=== PATIENT | male | born 1995 | race Two or more races ===

== ENCOUNTER 2023-12-29 21:02 | Inpatient (IN) | payer MEDICAID, OTHER ==
[~2023-12-29] VITALS: Ht 177.8 cm; Wt 84.4 kg
[2023-12-29 21:39] LABS: BASOPHILS # (AUTO) 0.1 K/UL (0.0-0.2); BASOPHILS % (AUTO) 0.4 % (0.0-2.0); EOSINOPHILS # (AUTO) 0.1 K/uL (0.0-0.7); EOSINOPHILS % (AUTO) 0.5 % (0.0-7.0); HEMATOCRIT 46.1 % (36.7-47.1); HEMOGLOBIN 14.9 g/dL (12.5-16.3); LYMPHOCYTES % (AUTO) 15.6 % (20.5-51.5); MEAN CORPUSCULAR HEMOGLOBIN 28.9 uug (23.8-33.4); MEAN CORPUSCULAR HGB CONC 32 g/dL (32.5-36.3); MEAN CORPUSCULAR VOLUME 89.7 fL (73.0-96.2); MONOCYTES # (AUTO) 0.8 K/uL (0.1-1.30); NEUTROPHILS # (AUTO) 9.9 K/uL (1.8-8.9); NEUTROPHILS % (AUTO) 77.5 % (38.5-71.5); PLATELET COUNT (AUTO) 299 K/uL (152-348); RED BLOOD CELL COUNT(AUTO) 5.14 MIL/uL (4.06-5.63); WHITE BLOOD COUNT (AUTO) 12.7 K/uL (3.6-10.2)
[2023-12-29 21:44] LABS: DIFFERENTIAL COMMENT 1
[2023-12-29 21:48] LABS: AMMONIA 18 umol/L (11-32); CALCIUM 8.4 mg/dL (8.5-10.1); CARBON DIOXIDE 25 mmol/L (21-32); CHLORIDE 105 mmol/L (98-107); GLUCOSE 104 mg/dL (74-106); POTASSIUM 3.4 mmol/L (3.5-5.1); SODIUM SERUM 143 mmol/L (136-145); UREA NITROGEN, BLOOD 11 mg/dL (7-18)
[2023-12-29 21:51] LABS: ETHANOL 42 MG/DL (0-10)
[2023-12-29 21:57] LABS: ACETAMINOPHEN < 2.0 ug/mL (10-30); ALANINE AMINOTRANSFERASE 29 U/L (16-63); ALBUMIN 3.8 g/dL (3.4-5.0); ALKALINE PHOSPHATASE 109 U/L (50-136); ASPARTATE AMINOTRANSFERASE 19 U/L (15-37); BILIRUBIN,DIRECT 0.1 mg/dL (0.0-0.2); BILIRUBIN,TOTAL 0.9 mg/dL (0.2-1.0); TOTAL PROTEIN, SERUM 7.4 g/dL (6.4-8.2)
[2023-12-29 22:07] LABS: LACTIC ACID 2.2 mmol/L (0.4-2.0)
[2023-12-29] MEDS ORDERED: LORAZEPAM 2 MG/1 ML VIAL ONE (22:12)
[2023-12-29] MEDS: LORAZEPAM 2 MG/1 ML VIAL IV ONE (22:22)
[2023-12-29 23:26] LABS: *BILIRUBIN,URIN NEGATIVE (NEGATIVE); *BLOOD, URINE NEGATIVE (NEGATIVE); *CLARITY,URINE CLEAR (CLEAR); *COLOR,URINE LIGHT YELLOW (YELLOW); *KETONES,URINE NEGATIVE (NEGATIVE); *PROTEIN,URINE NEGATIVE (NEGATIVE); *UROBILINOGEN,URINE 0.2 E.U./dl (NORMAL); LEUKOCYTE ESTERASE ,URINE NEGATIVE (NEGATIVE); NITRITE, URINE NEGATIVE (NEGATIVE); PH,URINE 5.5 (5.0-8.0); UGLUCOSE NEGATIVE (NEGATIVE)
[2023-12-29 23:35] LABS: *AMPHETAMINE, URINE NEGATIVE (NEGATIVE); *BARBITURATE, URINE NEGATIVE (NEGATIVE); *BENZODIAZEPINE, URINE NEGATIVE (NEGATIVE); *CANNABINOID, URINE NEGATIVE (NEGATIVE); *COCCAINE, URINE NEGATIVE (NEGATIVE); *OPIATE, URINE NEGATIVE (NEGATIVE); *PHENCYCLIDINE SCREEN,URINE NEGATIVE (NEGATIVE)
[2023-12-29 23:42] LABS: FENTANYL, URINE NEGATIVE (NEGATIVE)
[2023-12-30] MEDS ORDERED: CLONIDINE HCL 0.2 MG TABLET ONE (02:13)
[2023-12-30] MEDS: CLONIDINE HCL 0.2 MG TABLET PO ONE (02:16)
[2023-12-30] MEDS ORDERED: ACETAMINOPHEN 325 MG TABLET PO PRN ×2 (03:45→15:15)
[2023-12-30] MEDS ORDERED: MAGNESIUM HYDROXIDE 30 ML LIQUID UDC PO PRN ×2 (03:45→15:15)
[2023-12-30] MEDS ORDERED: REMEDY ESSENTIAL ZINC PASTE 113 GM TP PRN ×2 (03:45→15:15)
[2023-12-30] MEDS ORDERED: ONDANSETRON 4 MG/2 ML VIAL IV PRN ×2 (03:45→15:15)
[2023-12-30] MEDS ORDERED: IV NS 1000 ML 1,000 ML IV PRN ×2 (03:45→15:15)
[2023-12-30] MEDS ORDERED: PANTOPRAZOLE SODIUM 40 MG VIAL IV SCH (09:00)
[2023-12-30 16:17] VITALS: BP 135/77; TEMP 98.5; O2SAT 95
[2023-12-30] MEDS ORDERED: HALOPERIDOL LACTATE 5 MG/1 ML VIAL IM PRN (17:00)
[2023-12-30] MEDS ORDERED: IV D5W-0.45% NS +20 KCL 1,000 ML IV ONE (20:16)
[2023-12-30] MEDS: POTASSIUM CHLORIDE 20 MEQ in IV D5 1/2 NS 1000 ML 1,000 ML IV PRN (21:48)
[2023-12-30 23:48] VITALS: BP 112/72; TEMP 97.9; O2SAT 96
[2023-12-31 06:22] VITALS: BP 113/62; TEMP 97.4; O2SAT 100
[2023-12-31] MEDS: PANTOPRAZOLE SODIUM 40 MG VIAL IV SCH (08:53)
[2023-12-31] MEDS ORDERED: LORAZEPAM 1 MG TABLET PO PRN (09:30)
[2023-12-31] MEDS: FOLIC ACID 1 MG TABLET PO SCH (11:48)
[2023-12-31] MEDS: THIAMINE HCL 100 MG TABLET PO SCH (11:49)
[2023-12-31] MEDS: MULTIVITAMINS,THERAPEUTIC TABLET PO SCH (11:49)
[2023-12-31 12:38] VITALS: BP 107/60; TEMP 97.4; O2SAT 100
[2023-12-31] MEDS ORDERED: ATOM80CA3 PO (14:33)
[2023-12-31] MEDS ORDERED: MULT-225 PO (14:33)
[2023-12-31] MEDS ORDERED: THIA100T13 PO (15:41)
[2023-12-31] MEDS ORDERED: FAMO20TA8 PO (15:41)
[2023-12-31] MEDS ORDERED: FOLI1TAB94 PO (15:41)
[2023-12-31 16:00] VITALS: BP 115/76; TEMP 98.4; O2SAT 98
[2024-01-01] MEDS ORDERED: FAMOTIDINE 20 MG TABLET PO SCH (09:00)
[2024-01-01] MEDS ORDERED: Medication Not On Formulary EA (Multivitamins (Multiple Vitamin) 1 EACH) PO SCH (09:00)
[2024-01-01] MEDS ORDERED: ATOMOXETINE HCL 80 MG PO SCH (09:00)
== END 2023-12-31 17:00 | disposition home or self-care (01) | DRG 812 ==
LOC: ER 21:05 → TELE3 12-30 15:00 → ER 12-30 15:09 → MEDSURG3 12-30 15:50
PROVIDERS: ATTEND Internal Medicine
DX: T39.394A Poisoning by other nonsteroidal anti-inflammatory drugs [NSAID], undetermined, initial encounter (principal); G92.8 Other toxic encephalopathy; E87.20 Acidosis, unspecified; F19.121 Other psychoactive substance abuse with intoxication delirium; F31.9 Bipolar disorder, unspecified; D72.829 Elevated white blood cell count, unspecified; F10.129 Alcohol abuse with intoxication, unspecified; T51.0X4A Toxic effect of ethanol, undetermined, initial encounter; T48.4X4A Poisoning by expectorants, undetermined, initial encounter; T48.3X4A Poisoning by antitussives, undetermined, initial encounter; Y90.2 Blood alcohol level of 40-59 mg/100 ml; Y92.032 Bedroom in apartment as the place of occurrence of the external cause; E87.6 Hypokalemia; E66.9 Obesity, unspecified; Z68.26 Body mass index [BMI] 26.0-26.9, adult; Z79.899 Other long term (current) drug therapy; R00.0 Tachycardia, unspecified; F90.9 Attention-deficit hyperactivity disorder, unspecified type; F19.10 Other psychoactive substance abuse, uncomplicated
CPT/HCPCS: 36415; 70450; 71045; 83605; 84484; 85025; 85730; 93005; C1758; G0378; G0480; J2060; J2470; J3480; J7040

== ENCOUNTER 2024-01-29 23:17 | Inpatient (IN) | payer MEDICAID ==
[~2024-01-29] VITALS: Ht 175.3 cm; Wt 84.4 kg
[2024-01-29] MEDS: IV NS 1000 ML 1,000 ML IV ONE (00:23)
[~2024-01-29 23:17] MED LIST: ATOM80CA3 PO; FAMO20TA8 PO; FOLI1TAB94 PO; MULT-225 PO; THIA100T13 PO
[2024-01-29] MEDS ORDERED: HALO100A2 IM (23:51)
[2024-01-29] MEDS ORDERED: LITH300T2 PO (23:51)
[2024-01-30 00:21] LABS: BASOPHILS % (AUTO) 0.2 % (0.0-2.0); EOSINOPHILS % (AUTO) 0.2 % (0.0-7.0); HEMATOCRIT 46.7 % (36.7-47.1); HEMOGLOBIN 15.2 g/dL (12.5-16.3); LYMPHOCYTES # (AUTO) 0.9 K/uL (0.8-4.8); LYMPHOCYTES % (AUTO) 6.2 % (20.5-51.5); MEAN CORPUSCULAR HEMOGLOBIN 29.5 uug (23.8-33.4); MEAN CORPUSCULAR HGB CONC 33 g/dL (32.5-36.3); MEAN CORPUSCULAR VOLUME 90.9 fL (73.0-96.2); MONOCYTES # (AUTO) 0.9 K/uL (0.1-1.30); NEUTROPHILS # (AUTO) 12.8 K/uL (1.8-8.9); NEUTROPHILS % (AUTO) 87.4 % (38.5-71.5); PLATELET COUNT (AUTO) 261 K/uL (152-348); RED BLOOD CELL COUNT(AUTO) 5.14 MIL/uL (4.06-5.63); WHITE BLOOD COUNT (AUTO) 14.7 K/uL (3.6-10.2)
[2024-01-30 00:27] LABS: DIFFERENTIAL COMMENT 1
[2024-01-30 00:38] LABS: CALCIUM 8.9 mg/dL (8.5-10.1); CARBON DIOXIDE 25 mmol/L (21-32); CHLORIDE 106 mmol/L (98-107); CREATININE 1.2 mg/dL (0.6-1.3); GLUCOSE 87 mg/dL (74-106); POTASSIUM 3.8 mmol/L (3.5-5.1); SODIUM SERUM 142 mmol/L (136-145); UREA NITROGEN, BLOOD 10 mg/dL (7-18)
[2024-01-30 00:44] LABS: ALANINE AMINOTRANSFERASE 29 U/L (16-63); ALBUMIN 4.6 g/dL (3.4-5.0); ALKALINE PHOSPHATASE 108 U/L (50-136); ASPARTATE AMINOTRANSFERASE 24 U/L (15-37); BILIRUBIN,TOTAL 0.8 mg/dL (0.2-1.0); TOTAL PROTEIN, SERUM 8.4 g/dL (6.4-8.2)
[2024-01-30 00:55] LABS: ETHANOL < 3 MG/DL (0-10)
[2024-01-30 00:58] LABS: ACETAMINOPHEN < 10.0 ug/mL (10-30)
[2024-01-30 00:59] LABS: *BILIRUBIN,URIN NEGATIVE (NEGATIVE); *BLOOD, URINE NEGATIVE (NEGATIVE); *CLARITY,URINE CLEAR (CLEAR); *COLOR,URINE YELLOW (YELLOW); *KETONES,URINE NEGATIVE (NEGATIVE); *PROTEIN,URINE NEGATIVE (NEGATIVE); *UROBILINOGEN,URINE 0.2 E.U./dl (NORMAL); LEUKOCYTE ESTERASE ,URINE NEGATIVE (NEGATIVE); NITRITE, URINE NEGATIVE (NEGATIVE); PH,URINE 5.5 (5.0-8.0); UGLUCOSE NEGATIVE (NEGATIVE)
[2024-01-30 01:07] LABS: *AMPHETAMINE, URINE NEGATIVE (NEGATIVE); *BARBITURATE, URINE NEGATIVE (NEGATIVE); *BENZODIAZEPINE, URINE NEGATIVE (NEGATIVE); *CANNABINOID, URINE POSITIVE (NEGATIVE); *COCCAINE, URINE NEGATIVE (NEGATIVE); *OPIATE, URINE POSITIVE (NEGATIVE); *PHENCYCLIDINE SCREEN,URINE POSITIVE (NEGATIVE); FENTANYL, URINE NEGATIVE (NEGATIVE)
[2024-01-30] MEDS ORDERED: REMEDY ESSENTIAL ZINC PASTE 113 GM TP PRN (02:30)
[2024-01-30] MEDS ORDERED: ACETAMINOPHEN 325 MG TABLET PO PRN (02:30)
[2024-01-30] MEDS ORDERED: MAGNESIUM HYDROXIDE 30 ML LIQUID UDC PO PRN (02:30)
[2024-01-30] MEDS ORDERED: ONDANSETRON 4 MG/2 ML VIAL IV PRN (02:30)
[2024-01-30] MEDS ORDERED: CLONIDINE HCL 0.2 MG TABLET ONE (04:55)
[2024-01-30] MEDS: CLONIDINE HCL 0.2 MG TABLET PO ONE (04:58)
[2024-01-30 06:29] VITALS: BP 137/95; TEMP 98.5; O2SAT 99
[2024-01-30 07:53] LABS: BASOPHILS % (AUTO) 0.3 % (0.0-2.0); EOSINOPHILS % (AUTO) 0.2 % (0.0-7.0); HEMATOCRIT 43.6 % (36.7-47.1); HEMOGLOBIN 14.5 g/dL (12.5-16.3); LYMPHOCYTES # (AUTO) 2.2 K/uL (0.8-4.8); MEAN CORPUSCULAR HEMOGLOBIN 30.2 uug (23.8-33.4); MEAN CORPUSCULAR HGB CONC 33 g/dL (32.5-36.3); MEAN CORPUSCULAR VOLUME 90.9 fL (73.0-96.2); NEUTROPHILS # (AUTO) 7.7 K/uL (1.8-8.9); NEUTROPHILS % (AUTO) 70.5 % (38.5-71.5); PLATELET COUNT (AUTO) 250 K/uL (152-348); RED CELL DISTRIBUTION WIDTH 14.5 % (12.1-16.2); WHITE BLOOD COUNT (AUTO) 10.9 K/uL (3.6-10.2)
[2024-01-30 07:54] LABS: DIFFERENTIAL COMMENT 1
[2024-01-30 07:55] VITALS: BP 136/96; TEMP 98.3; O2SAT 96
[2024-01-30 08:00] LABS: ALBUMIN 3.9 g/dL (3.4-5.0); BILIRUBIN,DIRECT 0.1 mg/dL (0.0-0.2); BILIRUBIN,TOTAL 0.6 mg/dL (0.2-1.0); CALCIUM 8.9 mg/dL (8.5-10.1); MAGNESIUM 2.5 mg/dL (1.8-2.4); POTASSIUM 3.8 mmol/L (3.5-5.1); TOTAL PROTEIN, SERUM 7.2 g/dL (6.4-8.2)
[2024-01-30 08:13] LABS: THYROID STIMULATING HORMONE 2.375 mIU/mL (0.358-3.740)
[2024-01-30 11:25] VITALS: BP 139/99; TEMP 99.1; O2SAT 95
[2024-01-30 16:15] VITALS: BP 146/97; TEMP 97.6; O2SAT 98
[2024-01-30] MEDS: IV NS 1000 ML 1,000 ML IV PRN (16:23)
== END 2024-01-30 18:15 | disposition home or self-care (01) | DRG 817 ==
LOC: ER 23:22 → TELE3 01-30 02:05
PROVIDERS: ADMIT Nurse Practitioner Family; ATTEND Nurse Practitioner Acute Care
DX: T48.4X2A Poisoning by expectorants, intentional self-harm, initial encounter (principal); F11.10 Opioid abuse, uncomplicated; R00.0 Tachycardia, unspecified; Y92.039 Unspecified place in apartment as the place of occurrence of the external cause; F90.9 Attention-deficit hyperactivity disorder, unspecified type; F12.90 Cannabis use, unspecified, uncomplicated; F31.9 Bipolar disorder, unspecified; Z91.51 Personal history of suicidal behavior
CPT/HCPCS: 36415; 83735; 84100; 84443; 85025; 93005; A4606; A4663; G0378; G0480; J7040

== ENCOUNTER 2024-01-31 21:25 | Inpatient (IN) | payer MEDICAID ==
[~2024-01-31] VITALS: Ht 175.3 cm; Wt 84.4 kg
[2024-01-31 21:53] LABS: BASOPHILS % (AUTO) 0.4 % (0.0-2.0); EOSINOPHILS # (AUTO) 0.1 K/uL (0.0-0.7); EOSINOPHILS % (AUTO) 0.9 % (0.0-7.0); HEMATOCRIT 44.9 % (36.7-47.1); HEMOGLOBIN 14.7 g/dL (12.5-16.3); LYMPHOCYTES # (AUTO) 1.4 K/uL (0.8-4.8); LYMPHOCYTES % (AUTO) 14.8 % (20.5-51.5); MEAN CORPUSCULAR HEMOGLOBIN 29.8 uug (23.8-33.4); MEAN CORPUSCULAR HGB CONC 33 g/dL (32.5-36.3); MEAN CORPUSCULAR VOLUME 91.2 fL (73.0-96.2); MONOCYTES # (AUTO) 0.7 K/uL (0.1-1.30); MONOCYTES % (AUTO) 7.5 % (0.0-11.0); NEUTROPHILS % (AUTO) 76.4 % (38.5-71.5); PLATELET COUNT (AUTO) 240 K/uL (152-348); RED BLOOD CELL COUNT(AUTO) 4.92 MIL/uL (4.06-5.63); RED CELL DISTRIBUTION WIDTH 14.1 % (12.1-16.2); WHITE BLOOD COUNT (AUTO) 9.2 K/uL (3.6-10.2)
[2024-01-31 21:55] LABS: DIFFERENTIAL COMMENT 1
[2024-01-31 21:59] LABS: CALCIUM 8.7 mg/dL (8.5-10.1); CARBON DIOXIDE 25 mmol/L (21-32); CHLORIDE 108 mmol/L (98-107); CREATININE 1.2 mg/dL (0.6-1.3); GLUCOSE 101 mg/dL (74-106); POTASSIUM 3.4 mmol/L (3.5-5.1); SODIUM SERUM 144 mmol/L (136-145); UREA NITROGEN, BLOOD 12 mg/dL (7-18)
[2024-01-31 22:01] LABS: AMMONIA 30 umol/L (11-32)
[2024-01-31 22:08] LABS: ACETAMINOPHEN < 10.0 ug/mL (10-30); ALANINE AMINOTRANSFERASE 27 U/L (16-63); ALBUMIN 3.8 g/dL (3.4-5.0); ALKALINE PHOSPHATASE 105 U/L (50-136); ASPARTATE AMINOTRANSFERASE 28 U/L (15-37); BILIRUBIN,DIRECT 0.1 mg/dL (0.0-0.2); BILIRUBIN,TOTAL 0.7 mg/dL (0.2-1.0)
[2024-01-31 22:12] LABS: *BILIRUBIN,URIN NEGATIVE (NEGATIVE); *BLOOD, URINE 3+ (NEGATIVE); *CLARITY,URINE CLEAR (CLEAR); *COLOR,URINE YELLOW (YELLOW); *KETONES,URINE NEGATIVE (NEGATIVE); *PROTEIN,URINE NEGATIVE (NEGATIVE); *UROBILINOGEN,URINE 0.2 E.U./dl (NORMAL); LEUKOCYTE ESTERASE ,URINE NEGATIVE (NEGATIVE); NITRITE, URINE NEGATIVE (NEGATIVE); UGLUCOSE NEGATIVE (NEGATIVE)
[2024-01-31 22:13] LABS: ETHANOL 281 MG/DL (0-10)
[2024-01-31 22:23] LABS: BACTERIA,URINE NONE SEEN /HPF (NONE SEEN); SQUAMOUS EPITHELIAL CELL,UR MODERATE /HPF (NONE SEEN)
[2024-01-31 22:28] LABS: *AMPHETAMINE, URINE NEGATIVE (NEGATIVE); *BARBITURATE, URINE NEGATIVE (NEGATIVE); *BENZODIAZEPINE, URINE NEGATIVE (NEGATIVE); *CANNABINOID, URINE NEGATIVE (NEGATIVE); *COCCAINE, URINE NEGATIVE (NEGATIVE); *OPIATE, URINE NEGATIVE (NEGATIVE); *PHENCYCLIDINE SCREEN,URINE POSITIVE (NEGATIVE); FENTANYL, URINE NEGATIVE (NEGATIVE)
[2024-02-01] VITALS (70 sets, daily range): BP systolic 77–146; BP diastolic 45–101; TEMP 98.2–98.9; O2SAT 94–100
[2024-02-01] MEDS: IV NORMAL SALINE 1000 ML BAG IV ONE
[2024-02-01] MEDS ORDERED: THIAMINE HCL 200 MG/2 ML VIAL ONE (00:11)
[2024-02-01] MEDS: THIAMINE HCL 200 MG/2 ML VIAL IV ONE (00:12)
[2024-02-01] MEDS ORDERED: NOREPINEPHRINE BITARTRATE 8 MG in IV NORMAL SALINE 242 ML IV PRN ×2 (01:30→01:45)
[2024-02-01] MEDS ORDERED: MAGNESIUM HYDROXIDE 30 ML LIQUID UDC PO PRN (01:45)
[2024-02-01] MEDS ORDERED: ONDANSETRON 4 MG/2 ML VIAL IV PRN (01:45)
[2024-02-01] MEDS ORDERED: REMEDY ESSENTIAL ZINC PASTE 113 GM TP PRN (01:45)
[2024-02-01] MEDS ORDERED: PHARMACY TO ADD 1 AMP OF MVI DAILY TO IVF ONE BAG XX PRN (01:45)
[2024-02-01] MEDS: IV NS 1000 ML 1,000 ML IV PRN (03:12)
[2024-02-01 05:36] LABS: BASOPHILS % (AUTO) 0.1 % (0.0-2.0); HEMATOCRIT 40.7 % (36.7-47.1); HEMOGLOBIN 13.3 g/dL (12.5-16.3); LYMPHOCYTES % (AUTO) 7.6 % (20.5-51.5); MEAN CORPUSCULAR HEMOGLOBIN 29.9 uug (23.8-33.4); MEAN CORPUSCULAR HGB CONC 33 g/dL (32.5-36.3); MEAN CORPUSCULAR VOLUME 91.4 fL (73.0-96.2); MONOCYTES # (AUTO) 0.4 K/uL (0.1-1.30); MONOCYTES % (AUTO) 2.8 % (0.0-11.0); NEUTROPHILS # (AUTO) 11.5 K/uL (1.8-8.9); NEUTROPHILS % (AUTO) 89.5 % (38.5-71.5); PLATELET COUNT (AUTO) 240 K/uL (152-348); RED BLOOD CELL COUNT(AUTO) 4.45 MIL/uL (4.06-5.63); RED CELL DISTRIBUTION WIDTH 14.4 % (12.1-16.2); WHITE BLOOD COUNT (AUTO) 12.8 K/uL (3.6-10.2)
[2024-02-01 05:40] LABS: DIFFERENTIAL COMMENT 1
[2024-02-01 05:49] LABS: ALBUMIN 3.4 g/dL (3.4-5.0); BILIRUBIN,DIRECT 0.1 mg/dL (0.0-0.2); CALCIUM 7.5 mg/dL (8.5-10.1); CREATININE 1.1 mg/dL (0.6-1.3); MAGNESIUM 1.7 mg/dL (1.8-2.4); PHOSPHOROUS 3.7 mg/dL (2.5-4.9); POTASSIUM 3.9 mmol/L (3.5-5.1); TOTAL PROTEIN, SERUM 6.3 g/dL (6.4-8.2)
[2024-02-01 06:00] LABS: THYROID STIMULATING HORMONE 1.643 mIU/mL (0.358-3.740)
[2024-02-01] MEDS ORDERED: NOREPINEPHRINE BITARTRATE 4 MG/4 ML VIAL IV ONE (06:06)
[2024-02-01] MEDS: PROPOFOL 100 ML IV PRN (06:19)
[2024-02-01] MEDS: NOREPINEPHRINE BITARTRATE 8 MG in IV NORMAL SALINE 242 ML IV PRN (06:21)
[2024-02-01] MEDS ORDERED: ROCURONIUM BROMIDE 50 MG/5 ML VIAL ONE (06:30)
[2024-02-01] MEDS: MVI ADULT 10 ML VIAL=1 AMP 10 ML in IV NS 1000 ML 1,000 ML IV PRN (07:56)
[2024-02-01] MEDS: PANTOPRAZOLE SODIUM 40 MG VIAL IV SCH (09:29)
[2024-02-01] MEDS: FOLIC ACID/VITAMIN B COMP W-C TABLET PO SCH (09:29)
[2024-02-01] MEDS: ENOXAPARIN SODIUM 40 MG/0.4 ML DISP.SYRIN SQ SCH (09:30)
[2024-02-01] MEDS: MIDAZOLAM HCL 50 MG in IV NORMAL SALINE 40 ML IV PRN (09:32)
[2024-02-01] MEDS: MAGNESIUM SULFATE/D5W 100 ML IV SCH (09:34)
[2024-02-01 09:54] LABS: ABG BASE EXCESS -5.7 mmol/L (-2.0-2.0); ABG HCO3 17.8 mmol/L (22.0-26.0); ABG PCO2 27.1 mmHg (35.0-48.0); ABG PH 7.436 (7.340-7.440); ABG SITE LEFT RADIAL; ABG TOTAL HEMOGLOBIN 7.3 G/dL (14.0-18.0); AaDO2 99.9 mmHg; COHb 0.3 % (0.0-3.9); MetHb 0.3 % (0.0-1.5); O2Hb 99.1 % (94.0-97.0); VT, ABG 550 mL
[2024-02-02] VITALS (37 sets, daily range): BP systolic 110–148; BP diastolic 57–97; TEMP 98.7–99; O2SAT 98–100
[2024-02-02 04:53] LABS: BASOPHILS % (AUTO) 0.5 % (0.0-2.0); EOSINOPHILS # (AUTO) 0.1 K/uL (0.0-0.7); EOSINOPHILS % (AUTO) 1.1 % (0.0-7.0); HEMATOCRIT 31.7 % (36.7-47.1); HEMOGLOBIN 10.8 g/dL (12.5-16.3); LYMPHOCYTES # (AUTO) 2.1 K/uL (0.8-4.8); LYMPHOCYTES % (AUTO) 23.3 % (20.5-51.5); MEAN CORPUSCULAR HGB CONC 34 g/dL (32.5-36.3); MEAN CORPUSCULAR VOLUME 91.3 fL (73.0-96.2); MONOCYTES # (AUTO) 0.8 K/uL (0.1-1.30); MONOCYTES % (AUTO) 8.4 % (0.0-11.0); NEUTROPHILS # (AUTO) 6.1 K/uL (1.8-8.9); NEUTROPHILS % (AUTO) 66.7 % (38.5-71.5); PLATELET COUNT (AUTO) 179 K/uL (152-348); RED BLOOD CELL COUNT(AUTO) 3.47 MIL/uL (4.06-5.63); RED CELL DISTRIBUTION WIDTH 14.7 % (12.1-16.2); WHITE BLOOD COUNT (AUTO) 9.1 K/uL (3.6-10.2)
[2024-02-02 04:57] LABS: DIFFERENTIAL COMMENT 1
[2024-02-02 05:04] LABS: CALCIUM 6.7 mg/dL (8.5-10.1); CREATININE 0.9 mg/dL (0.6-1.3); MAGNESIUM 1.8 mg/dL (1.8-2.4); PHOSPHOROUS 1.4 mg/dL (2.5-4.9); POTASSIUM 2.9 mmol/L (3.5-5.1)
[2024-02-02 06:06] LABS: ABG BASE EXCESS -2.8 mmol/L (-2.0-2.0); ABG HCO3 18.9 mmol/L (22.0-26.0); ABG PCO2 24.8 mmHg (35.0-48.0); ABG PO2 256.2 mmHg (75.0-100.0); ABG SITE LEFT RADIAL; ABG TOTAL HEMOGLOBIN 12.3 G/dL (14.0-18.0); AaDO2 99.7 mmHg; COHb 0.3 % (0.0-3.9); MetHb 0.3 % (0.0-1.5); VT, ABG 550 mL
[2024-02-02] MEDS: POTASSIUM PHOSPHATE MM 15 MMOL in IV NORMAL SALINE 250 ML IV ONE (08:25)
[2024-02-02] MEDS: POTASSIUM CHLORIDE 20 MEQ POWDER PACKET GT ONE (09:14)
[2024-02-02] MEDS: PROPOFOL 100 ML IV PRN (18:49)
[2024-02-02] MEDS: CHLORDIAZEPOXIDE HCL 25 MG CAPSULE PO PRN (21:18)
[2024-02-02] MEDS ORDERED: MVI ADULT 10 ML VIAL=1 AMP 10 ML, THIAMINE HCL INJ 100 MG, FOLIC ACID 1 MG, MAGNESIUM S... IV SCH (23:30)
[2024-02-02] MEDS: ACETAMINOPHEN 325 MG TABLET PO PRN (23:51)
[2024-02-02] MEDS: ZOLPIDEM 5 MG TABLET PO PRN (23:54)
[2024-02-03] VITALS (17 sets, daily range): BP systolic 114–155; BP diastolic 68–117; TEMP 97.5–100.5; O2SAT 97–100
[2024-02-03 04:48] LABS: BASOPHILS # (AUTO) 0.1 K/UL (0.0-0.2); BASOPHILS % (AUTO) 0.5 % (0.0-2.0); EOSINOPHILS # (AUTO) 0.1 K/uL (0.0-0.7); EOSINOPHILS % (AUTO) 0.8 % (0.0-7.0); HEMATOCRIT 34.1 % (36.7-47.1); HEMOGLOBIN 11.4 g/dL (12.5-16.3); LYMPHOCYTES # (AUTO) 1.7 K/uL (0.8-4.8); LYMPHOCYTES % (AUTO) 11.6 % (20.5-51.5); MEAN CORPUSCULAR HEMOGLOBIN 30.3 uug (23.8-33.4); MEAN CORPUSCULAR HGB CONC 33 g/dL (32.5-36.3); MEAN CORPUSCULAR VOLUME 90.8 fL (73.0-96.2); MONOCYTES % (AUTO) 6.6 % (0.0-11.0); NEUTROPHILS # (AUTO) 11.9 K/uL (1.8-8.9); NEUTROPHILS % (AUTO) 80.5 % (38.5-71.5); PLATELET COUNT (AUTO) 190 K/uL (152-348); RED BLOOD CELL COUNT(AUTO) 3.75 MIL/uL (4.06-5.63); RED CELL DISTRIBUTION WIDTH 14.2 % (12.1-16.2); WHITE BLOOD COUNT (AUTO) 14.7 K/uL (3.6-10.2)
[2024-02-03 04:58] LABS: CALCIUM 7.9 mg/dL (8.5-10.1); CARBON DIOXIDE 23 mmol/L (21-32); CHLORIDE 107 mmol/L (98-107); CREATININE 0.6 mg/dL (0.6-1.3); DIFFERENTIAL COMMENT 1; GLUCOSE 91 mg/dL (74-106); MAGNESIUM 1.5 mg/dL (1.8-2.4); PHOSPHOROUS 3.2 mg/dL (2.5-4.9); POTASSIUM 3.2 mmol/L (3.5-5.1); SODIUM SERUM 140 mmol/L (136-145); UREA NITROGEN, BLOOD 4 mg/dL (7-18)
[2024-02-03] MEDS ORDERED: PHARMACY TO ADD 1 AMP OF MVI DAILY TO IVF ONE BAG XX PRN (06:15)
[2024-02-03 06:56] LABS: ABG BASE EXCESS -3.4 mmol/L (-2.0-3.0); ABG HCO3 19.9 mmol/L (21.0-28.0); ABG PH 7.425 (7.350-7.450); ABG PO2 136.5 mmHg (83.0-108.0); ABG SITE RIGHT RADIAL; ABG TOTAL HEMOGLOBIN 13.7 G/dL (13.5-17.5); AaDO2 98.8 mmHg; COHb 0.3 % (0.5-1.5); CPAP,BG 0 cmH20; MetHb 0.1 % (0.0-1.5); O2Hb 98.5 % (94.0-98.0)
[2024-02-03] MEDS ORDERED: PANTOPRAZOLE SODIUM 40 MG TABLET.DR PO SCH (07:00)
[2024-02-03] MEDS: POTASSIUM CHLORIDE 20 MEQ TAB.PRT.SR PO ONE (07:56)
[2024-02-03] MEDS: MAGNESIUM SULFATE/D5W 100 ML IV SCH (08:24)
[2024-02-03] MEDS: PANTOPRAZOLE SODIUM 40 MG VIAL IV SCH (08:24)
[2024-02-03] MEDS: MULTIVIT, IRON, MIN NO. 8, FA TABLET PO SCH (08:35)
[2024-02-03] MEDS: FOLIC ACID 1 MG TABLET PO SCH (08:35)
[2024-02-03] MEDS: VITAMIN B COMPLEX 1 TABLET PO SCH (08:35)
[2024-02-03] MEDS: THIAMINE HCL 100 MG TABLET PO SCH (08:36)
[2024-02-03] MEDS: OLANZAPINE ZYDIS 5 MG TAB.RAPDIS PO ONE (13:12)
[2024-02-03] MEDS: LORAZEPAM 1 MG TABLET PO ONE (13:47)
[2024-02-03] MEDS: LORAZEPAM 2 MG/1 ML VIAL IV ONE (13:48)
[2024-02-04 00:10] VITALS: BP 111/63; TEMP 99.2; O2SAT 96
[2024-02-04 06:22] VITALS: BP 117/77; TEMP 98.2; O2SAT 99
[2024-02-04 07:58] LABS: BASOPHILS % (AUTO) 0.3 % (0.0-2.0); EOSINOPHILS # (AUTO) 0.2 K/uL (0.0-0.7); EOSINOPHILS % (AUTO) 1.2 % (0.0-7.0); HEMATOCRIT 38.9 % (36.7-47.1); HEMOGLOBIN 12.9 g/dL (12.5-16.3); LYMPHOCYTES # (AUTO) 0.8 K/uL (0.8-4.8); LYMPHOCYTES % (AUTO) 5.4 % (20.5-51.5); MEAN CORPUSCULAR HEMOGLOBIN 29.9 uug (23.8-33.4); MEAN CORPUSCULAR HGB CONC 33 g/dL (32.5-36.3); MEAN CORPUSCULAR VOLUME 90.1 fL (73.0-96.2); MONOCYTES # (AUTO) 1.1 K/uL (0.1-1.30); MONOCYTES % (AUTO) 6.9 % (0.0-11.0); NEUTROPHILS # (AUTO) 13.5 K/uL (1.8-8.9); NEUTROPHILS % (AUTO) 86.2 % (38.5-71.5); PLATELET COUNT (AUTO) 218 K/uL (152-348); RED BLOOD CELL COUNT(AUTO) 4.32 MIL/uL (4.06-5.63); RED CELL DISTRIBUTION WIDTH 14.3 % (12.1-16.2); WHITE BLOOD COUNT (AUTO) 15.6 K/uL (3.6-10.2)
[2024-02-04 08:08] LABS: DIFFERENTIAL COMMENT 1
[2024-02-04 08:23] LABS: CALCIUM 8.3 mg/dL (8.5-10.1); CREATININE 0.9 mg/dL (0.6-1.3); MAGNESIUM 2.1 mg/dL (1.8-2.4); PHOSPHOROUS 2.6 mg/dL (2.5-4.9)
[2024-02-04 08:36] VITALS: BP 111/66; TEMP 98.3; O2SAT 96
[2024-02-04] MEDS: POTASSIUM CHLORIDE 20 MEQ TAB.PRT.SR PO SCH (09:14)
[2024-02-04 13:29] LABS: *CLARITY,URINE CLEAR (CLEAR); *KETONES,URINE NEGATIVE (NEGATIVE); *PROTEIN,URINE 1+ (NEGATIVE); LEUKOCYTE ESTERASE ,URINE NEGATIVE (NEGATIVE); NITRITE, URINE NEGATIVE (NEGATIVE); UGLUCOSE NEGATIVE (NEGATIVE)
[2024-02-04 13:32] LABS: *BILIRUBIN,URIN 1+ (NEGATIVE); *BLOOD, URINE TRACE (NEGATIVE)
[2024-02-04 13:40] VITALS: BP 133/84; TEMP 98.1; O2SAT 98
[2024-02-04 15:15] LABS: BACTERIA,URINE MANY /HPF (NONE SEEN); CALCIUM OXALATE CRYSTALS,UR RARE /HPF (NONE SEEN); SQUAMOUS EPITHELIAL CELL,UR FEW /HPF (NONE SEEN)
[2024-02-05] MEDS ORDERED: PANTOPRAZOLE SODIUM 40 MG TABLET.DR PO SCH (07:00)
== END 2024-02-04 16:00 | disposition home or self-care (01) | DRG 812 ==
LOC: ER 21:25 → CCU 02-01 01:31 → TELE3 02-03 16:38 → MEDSURG3 02-04 10:15
PROVIDERS: ADMIT Nurse Practitioner Family; ATTEND Nurse Practitioner Acute Care
PROC: 02HV33Z Insertion of Infusion Device into Superior Vena Cava, Percutaneous Approach (ICD-10-PCS; principal; 2024-02-01)
PROC: 0BH17EZ Insertion of Endotracheal Airway into Trachea, Via Natural or Artificial Opening (ICD-10-PCS; principal; 2024-02-01)
PROC: B548ZZA Ultrasonography of Superior Vena Cava, Guidance (ICD-10-PCS; principal; 2024-02-01)
PROC: 5A1945Z Respiratory Ventilation, 24-96 Consecutive Hours (ICD-10-PCS; principal; 2024-02-01)
DX: T48.4X1A Poisoning by expectorants, accidental (unintentional), initial encounter (principal); J96.01 Acute respiratory failure with hypoxia; G92.8 Other toxic encephalopathy; T51.0X1A Toxic effect of ethanol, accidental (unintentional), initial encounter; T42.6X1A Poisoning by other antiepileptic and sedative-hypnotic drugs, accidental (unintentional), initial encounter; T39.391A Poisoning by other nonsteroidal anti-inflammatory drugs [NSAID], accidental (unintentional), initial encounter; Y92.039 Unspecified place in apartment as the place of occurrence of the external cause; F31.9 Bipolar disorder, unspecified; R56.9 Unspecified convulsions; D64.9 Anemia, unspecified; D72.829 Elevated white blood cell count, unspecified; E66.3 Overweight; E83.39 Other disorders of phosphorus metabolism; E83.42 Hypomagnesemia; E87.6 Hypokalemia; F90.9 Attention-deficit hyperactivity disorder, unspecified type; Z91.199 Patient's noncompliance with other medical treatment and regimen due to unspecified reason; Y92.009 Unspecified place in unspecified non-institutional (private) residence as the place of occurrence of the external cause; R45.851 Suicidal ideations; F10.129 Alcohol abuse with intoxication, unspecified; F39 Unspecified mood [affective] disorder; F19.129 Other psychoactive substance abuse with intoxication, unspecified
CPT/HCPCS: 36415; 36569; 36600; 70450; 71045; 82803; 83690; 83735; 83921; 84100; 84443; 84484; 85025; 85730; 86140; 93005; 94002; 94003; A4606; A4663; G0378; G0480; J1650; J2250; J2470; J3411; J3475; J3490; J7040

== ENCOUNTER 2024-06-16 20:19 | Inpatient (IN) | payer MEDICAID ==
[~2024-06-16] VITALS: Ht 182.9 cm; Wt 86.2 kg
[2024-06-16 20:44] LABS: BASOPHILS % (AUTO) 0.2 % (0.0-2.0); EOSINOPHILS % (AUTO) 0.1 % (0.0-7.0); HEMATOCRIT 42.6 % (36.7-47.1); LYMPHOCYTES # (AUTO) 1.2 K/uL (0.8-4.8); LYMPHOCYTES % (AUTO) 7.5 % (20.5-51.5); MEAN CORPUSCULAR HEMOGLOBIN 28.1 uug (23.8-33.4); MEAN CORPUSCULAR HGB CONC 33 g/dL (32.5-36.3); MEAN CORPUSCULAR VOLUME 85.3 fL (73.0-96.2); MONOCYTES # (AUTO) 0.9 K/uL (0.1-1.30); MONOCYTES % (AUTO) 5.7 % (0.0-11.0); NEUTROPHILS # (AUTO) 13.2 K/uL (1.8-8.9); NEUTROPHILS % (AUTO) 86.5 % (38.5-71.5); PLATELET COUNT (AUTO) 321 K/uL (152-348); RED BLOOD CELL COUNT(AUTO) 4.99 MIL/uL (4.06-5.63); RED CELL DISTRIBUTION WIDTH 14.7 % (12.1-16.2); WHITE BLOOD COUNT (AUTO) 15.3 K/uL (3.6-10.2)
[2024-06-16 20:55] LABS: CALCIUM 8.3 mg/dL (8.5-10.1); CARBON DIOXIDE 24 mmol/L (21-32); CHLORIDE 102 mmol/L (98-107); CREATININE 1.2 mg/dL (0.6-1.3); GLUCOSE 91 mg/dL (74-106); POTASSIUM 3.5 mmol/L (3.5-5.1); SODIUM SERUM 140 mmol/L (136-145); UREA NITROGEN, BLOOD 9 mg/dL (7-18)
[2024-06-16 20:57] LABS: AMMONIA < 10 umol/L (11-32)
[2024-06-16 21:07] LABS: DIFFERENTIAL COMMENT 1; ETHANOL 19 MG/DL (0-10)
[2024-06-16 21:08] LABS: ALANINE AMINOTRANSFERASE 24 U/L (16-63); ALBUMIN 4.3 g/dL (3.4-5.0); ALKALINE PHOSPHATASE 109 U/L (50-136); ASPARTATE AMINOTRANSFERASE 31 U/L (15-37); BILIRUBIN,DIRECT 0.1 mg/dL (0.0-0.2); BILIRUBIN,TOTAL 0.7 mg/dL (0.2-1.0); TOTAL PROTEIN, SERUM 7.7 g/dL (6.4-8.2)
[2024-06-16 21:10] LABS: ACETAMINOPHEN < 2.0 ug/mL (10-30)
[2024-06-16] MEDS: IV NORMAL SALINE 1000 ML BAG IV ONE (21:17)
[2024-06-16] MEDS ORDERED: ONDANSETRON 4 MG/2 ML VIAL ONE (21:18)
[2024-06-16] MEDS ORDERED: LABETALOL HCL 100 MG/20 ML VIAL ONE (21:18)
[2024-06-16] MEDS: ONDANSETRON 4 MG/2 ML VIAL IV ONE (21:20)
[2024-06-16] MEDS: LABETALOL HCL 100 MG/20 ML VIAL IV ONE (21:21)
[2024-06-16 23:11] LABS: THYROID STIMULATING HORMONE 1.396 mIU/mL (0.358-3.740)
[2024-06-16 23:23] LABS: *BILIRUBIN,URIN NEGATIVE (NEGATIVE); *CLARITY,URINE CLEAR (CLEAR); *COLOR,URINE YELLOW (YELLOW); *KETONES,URINE NEGATIVE (NEGATIVE); *PROTEIN,URINE NEGATIVE (NEGATIVE); *UROBILINOGEN,URINE 0.2 E.U./dl (NORMAL); LEUKOCYTE ESTERASE ,URINE 1+ (NEGATIVE); NITRITE, URINE POSITIVE (NEGATIVE); PH,URINE 6.5 (5.0-8.0); UGLUCOSE NEGATIVE (NEGATIVE)
[2024-06-16 23:24] LABS: *BLOOD, URINE TRACE (NEGATIVE)
[2024-06-16 23:39] LABS: BACTERIA,URINE MODERATE /HPF (NONE SEEN); URIC ACID CRYSTALS,URINE FEW /HPF (NONE SEEN)
[2024-06-16 23:41] LABS: *AMPHETAMINE, URINE NEGATIVE (NEGATIVE); *BARBITURATE, URINE NEGATIVE (NEGATIVE); *BENZODIAZEPINE, URINE NEGATIVE (NEGATIVE); *CANNABINOID, URINE POSITIVE (NEGATIVE); *COCCAINE, URINE NEGATIVE (NEGATIVE); *OPIATE, URINE NEGATIVE (NEGATIVE); *PHENCYCLIDINE SCREEN,URINE NEGATIVE (NEGATIVE); FENTANYL, URINE NEGATIVE (NEGATIVE)
[2024-06-17] MEDS ORDERED: LABETALOL HCL 100 MG/20 ML VIAL ONE (00:44)
[2024-06-17] MEDS: LABETALOL HCL 100 MG/20 ML VIAL IV ONE (00:45)
[2024-06-17] MEDS ORDERED: MAGNESIUM HYDROXIDE 30 ML LIQUID UDC PO PRN (05:00)
[2024-06-17] MEDS ORDERED: ACETAMINOPHEN 325 MG TABLET PO PRN (05:00)
[2024-06-17] MEDS ORDERED: REMEDY ESSENTIAL ZINC PASTE 113 GM TP PRN (05:00)
[2024-06-17] MEDS: PANTOPRAZOLE SODIUM 40 MG TABLET.DR PO SCH (07:45)
[2024-06-17 08:41] LABS: ALBUMIN 3.9 g/dL (3.4-5.0); BILIRUBIN,DIRECT 0.2 mg/dL (0.0-0.2); CALCIUM 8.5 mg/dL (8.5-10.1); CREATININE 1.5 mg/dL (0.6-1.3); MAGNESIUM 2.1 mg/dL (1.8-2.4); PHOSPHOROUS 3.6 mg/dL (2.5-4.9); TOTAL PROTEIN, SERUM 7.3 g/dL (6.4-8.2)
[2024-06-17 08:55] LABS: THYROID STIMULATING HORMONE 0.959 mIU/mL (0.358-3.740)
[2024-06-17 09:19] LABS: BASOPHILS # (AUTO) 0.1 K/UL (0.0-0.2); BASOPHILS % (AUTO) 0.2 % (0.0-2.0); DIFFERENTIAL COMMENT 0; HEMATOCRIT 39.9 % (36.7-47.1); HEMOGLOBIN 13.2 g/dL (12.5-16.3); LYMPHOCYTES # (AUTO) 0.5 K/uL (0.8-4.8); LYMPHOCYTES % (AUTO) 1.1 % (20.5-51.5); MEAN CORPUSCULAR HEMOGLOBIN 28.5 uug (23.8-33.4); MEAN CORPUSCULAR HGB CONC 33 g/dL (32.5-36.3); MONOCYTES # (AUTO) 1.4 K/uL (0.1-1.30); MONOCYTES % (AUTO) 3.1 % (0.0-11.0); NEUTROPHILS # (AUTO) 43.9 K/uL (1.8-8.9); NEUTROPHILS % (AUTO) 95.6 % (38.5-71.5); PLATELET COUNT (AUTO) 269 K/uL (152-348); RED BLOOD CELL COUNT(AUTO) 4.64 MIL/uL (4.06-5.63); RED CELL DISTRIBUTION WIDTH 15.1 % (12.1-16.2)
[2024-06-17] MEDS: IV NORMAL SALINE 1000 ML BAG IV ONE (10:12)
[2024-06-17 10:34] LABS: POTASSIUM 3.7 mmol/L (3.5-5.1)
[2024-06-17] MEDS ORDERED: LIDOCAINE 2% (GLYDO= UROJET) 10 ML JELLY MM ONE (11:50)
[2024-06-17 12:15] LABS: WHITE BLOOD COUNT (AUTO) 45.9 K/uL (3.6-10.2)
[2024-06-17] MEDS ORDERED: PIPERACILLIN SODIUM/TAZOBACTAM 3.375 G in IV DEXTROSE 5% 50 ML IV SCH (14:00)
[2024-06-17 15:03] LABS: BASOPHILS % (AUTO) 0.1 % (0.0-2.0); HEMATOCRIT 36.1 % (36.7-47.1); HEMOGLOBIN 11.7 g/dL (12.5-16.3); LYMPHOCYTES # (AUTO) 0.4 K/uL (0.8-4.8); LYMPHOCYTES % (AUTO) 1.4 % (20.5-51.5); MEAN CORPUSCULAR HEMOGLOBIN 27.8 uug (23.8-33.4); MEAN CORPUSCULAR HGB CONC 33 g/dL (32.5-36.3); MEAN CORPUSCULAR VOLUME 85.6 fL (73.0-96.2); MONOCYTES # (AUTO) 0.3 K/uL (0.1-1.30); MONOCYTES % (AUTO) 1.1 % (0.0-11.0); NEUTROPHILS # (AUTO) 28.5 K/uL (1.8-8.9); NEUTROPHILS % (AUTO) 97.4 % (38.5-71.5); PLATELET COUNT (AUTO) 243 K/uL (152-348); RED BLOOD CELL COUNT(AUTO) 4.22 MIL/uL (4.06-5.63); RED CELL DISTRIBUTION WIDTH 14.6 % (12.1-16.2); WHITE BLOOD COUNT (AUTO) 29.3 K/uL (3.6-10.2)
[2024-06-17 15:20] LABS: CALCIUM 7.5 mg/dL (8.5-10.1); CREATININE 1.4 mg/dL (0.6-1.3); POTASSIUM 3.8 mmol/L (3.5-5.1)
[2024-06-17 15:24] LABS: DIFFERENTIAL COMMENT 1
[2024-06-17] MEDS ORDERED: ACETAMINOPHEN 500 MG TABLET ONE (17:29)
[2024-06-17] MEDS: ACETAMINOPHEN 500 MG TABLET PO ONE (17:37)
[2024-06-17] MEDS ORDERED: VANCOMYCIN IV 200 ML ONE (17:50)
[2024-06-17] MEDS ORDERED: PIPERACILLIN/TAZOBACTAM/D5W 50 ML IV ONE (17:50)
[2024-06-17] MEDS: VANCOMYCIN IV 1,000 MG in IV DEXTROSE 5% 250 ML IV ONE (18:00)
[2024-06-17] MEDS: PIPERACILLIN SODIUM/TAZOBACTAM 3.375 G in IV DEXTROSE 5% 50 ML IV ONE (18:10)
[2024-06-17 18:30] LABS: LACTIC ACID 4.9 mmol/L (0.4-2.0)
[2024-06-17] MEDS ORDERED: QUETIAPINE FUMARATE 25 MG TABLET PO PRN (19:15)
[2024-06-17] MEDS ORDERED: MORPHINE SULFATE 2 MG/1 ML DISP.SYRIN IV PRN (19:15)
[2024-06-17] MEDS: IV D5/ 0.9% NACL 1,000 ML IV PRN (21:59)
[2024-06-17] MEDS ORDERED: PIPERACILLIN/TAZOBACTAM/D5W 100 ML IV ONE (23:28)
[2024-06-17 23:29] LABS: BAND % (MANUAL) 19 % (0-10); LYMPHOCYTES % (MANUAL) 4 % (20-40); MONOCYTES % (MANUAL) 7 % (2-10); NEUTROPHILS % (MANUAL) 70 % (42-75)
[2024-06-17] MEDS: PIPERACILLIN SODIUM/TAZOBACTAM 3.375 G in IV DEXTROSE 5% 50 ML IV SCH (23:36)
[2024-06-18 07:09] LABS: BASOPHILS % (AUTO) 0.1 % (0.0-2.0); DIFFERENTIAL COMMENT 0; EOSINOPHILS # (AUTO) 0.1 K/uL (0.0-0.7); EOSINOPHILS % (AUTO) 0.3 % (0.0-7.0); HEMOGLOBIN 11.2 g/dL (12.5-16.3); LYMPHOCYTES # (AUTO) 1.1 K/uL (0.8-4.8); LYMPHOCYTES % (AUTO) 3.7 % (20.5-51.5); MEAN CORPUSCULAR HEMOGLOBIN 28.1 uug (23.8-33.4); MEAN CORPUSCULAR HGB CONC 33 g/dL (32.5-36.3); MEAN CORPUSCULAR VOLUME 85.2 fL (73.0-96.2); MONOCYTES # (AUTO) 1.2 K/uL (0.1-1.30); MONOCYTES % (AUTO) 3.9 % (0.0-11.0); NEUTROPHILS # (AUTO) 28.1 K/uL (1.8-8.9); PLATELET COUNT (AUTO) 190 K/uL (152-348); RED BLOOD CELL COUNT(AUTO) 3.99 MIL/uL (4.06-5.63); RED CELL DISTRIBUTION WIDTH 14.8 % (12.1-16.2)
[2024-06-18 08:00] VITALS: BP 110/60; TEMP 98
[2024-06-18 08:06] LABS: ALBUMIN 2.5 g/dL (3.4-5.0); BILIRUBIN,DIRECT 0.2 mg/dL (0.0-0.2); BILIRUBIN,TOTAL 0.7 mg/dL (0.2-1.0); CALCIUM 7.5 mg/dL (8.5-10.1); CREATININE 1.2 mg/dL (0.6-1.3); MAGNESIUM 2.1 mg/dL (1.8-2.4); PHOSPHOROUS 2.2 mg/dL (2.5-4.9); POTASSIUM 4.1 mmol/L (3.5-5.1); TOTAL PROTEIN, SERUM 5.4 g/dL (6.4-8.2); WHITE BLOOD COUNT (AUTO) 30.5 K/uL (3.6-10.2)
[2024-06-18] MEDS: VANCOMYCIN IV 1,250 MG in IV DEXTROSE 5% 250 ML IV SCH (09:59)
[2024-06-18] MEDS ORDERED: LORAZEPAM 1 MG TABLET PO PRN (10:15)
[2024-06-18 12:00] VITALS: BP 105/57; TEMP 97.9
[2024-06-18 12:01] LABS: LYMPHOCYTES % (MANUAL) 4 % (20-40); MONOCYTES % (MANUAL) 4 % (2-10); NEUTROPHILS % (MANUAL) 92 % (42-75); PLATELET ESTIMATE ADEQUATE
[2024-06-18] MEDS: PIPERACILLIN SODIUM/TAZOBACTAM 3.375 G in IV DEXTROSE 5% 50 ML IV SCH (13:30)
[2024-06-18 15:30] VITALS: BP 107/55; TEMP 98.1; O2SAT 97
[2024-06-18] MEDS: NEUTRA PHOS PACKET PO ONE (17:47)
[2024-06-18 19:30] VITALS: BP 120/70; TEMP 98.3; O2SAT 100
[2024-06-19] VITALS (7 sets, daily range): BP systolic 97–129; BP diastolic 52–73; TEMP 97.1–98.5; O2SAT 96–100
[2024-06-19 06:59] LABS: BASOPHILS % (AUTO) 0.2 % (0.0-2.0); EOSINOPHILS # (AUTO) 0.4 K/uL (0.0-0.7); EOSINOPHILS % (AUTO) 2.8 % (0.0-7.0); HEMATOCRIT 31.9 % (36.7-47.1); HEMOGLOBIN 10.8 g/dL (12.5-16.3); LYMPHOCYTES # (AUTO) 1.4 K/uL (0.8-4.8); LYMPHOCYTES % (AUTO) 8.6 % (20.5-51.5); MEAN CORPUSCULAR HEMOGLOBIN 28.6 uug (23.8-33.4); MEAN CORPUSCULAR HGB CONC 34 g/dL (32.5-36.3); MEAN CORPUSCULAR VOLUME 84.2 fL (73.0-96.2); MONOCYTES # (AUTO) 1.2 K/uL (0.1-1.30); MONOCYTES % (AUTO) 7.4 % (0.0-11.0); NEUTROPHILS # (AUTO) 13.1 K/uL (1.8-8.9); PLATELET COUNT (AUTO) 149 K/uL (152-348); RED BLOOD CELL COUNT(AUTO) 3.79 MIL/uL (4.06-5.63); RED CELL DISTRIBUTION WIDTH 14.6 % (12.1-16.2); WHITE BLOOD COUNT (AUTO) 16.1 K/uL (3.6-10.2)
[2024-06-19 07:03] LABS: DIFFERENTIAL COMMENT 1
[2024-06-19 07:25] LABS: ALBUMIN 2.3 g/dL (3.4-5.0); BILIRUBIN,TOTAL 0.3 mg/dL (0.2-1.0); CALCIUM 7.2 mg/dL (8.5-10.1); CREATININE 0.8 mg/dL (0.6-1.3); MAGNESIUM 1.7 mg/dL (1.8-2.4); PHOSPHOROUS 2.5 mg/dL (2.5-4.9); POTASSIUM 3.6 mmol/L (3.5-5.1); TOTAL PROTEIN, SERUM 5.5 g/dL (6.4-8.2)
[2024-06-19] MEDS: MAGNESIUM OXIDE 400 MG TABLET PO ONE (13:45)
[2024-06-20 00:40] VITALS: BP 122/86; TEMP 98.6; O2SAT 98
[2024-06-20] MEDS: IV NS 1000 ML 1,000 ML IV PRN (02:03)
[2024-06-20 05:18] VITALS: BP 104/59; TEMP 98; O2SAT 99
[2024-06-20 07:01] LABS: BASOPHILS % (AUTO) 0.4 % (0.0-2.0); EOSINOPHILS # (AUTO) 0.4 K/uL (0.0-0.7); EOSINOPHILS % (AUTO) 3.6 % (0.0-7.0); HEMATOCRIT 33.4 % (36.7-47.1); HEMOGLOBIN 11.3 g/dL (12.5-16.3); LYMPHOCYTES # (AUTO) 1.5 K/uL (0.8-4.8); LYMPHOCYTES % (AUTO) 14.8 % (20.5-51.5); MEAN CORPUSCULAR HEMOGLOBIN 28.4 uug (23.8-33.4); MEAN CORPUSCULAR HGB CONC 34 g/dL (32.5-36.3); MEAN CORPUSCULAR VOLUME 84.5 fL (73.0-96.2); MONOCYTES # (AUTO) 0.8 K/uL (0.1-1.30); MONOCYTES % (AUTO) 8.5 % (0.0-11.0); NEUTROPHILS # (AUTO) 7.2 K/uL (1.8-8.9); NEUTROPHILS % (AUTO) 72.7 % (38.5-71.5); PLATELET COUNT (AUTO) 198 K/uL (152-348); RED BLOOD CELL COUNT(AUTO) 3.96 MIL/uL (4.06-5.63); RED CELL DISTRIBUTION WIDTH 14.6 % (12.1-16.2); WHITE BLOOD COUNT (AUTO) 9.9 K/uL (3.6-10.2)
[2024-06-20 07:05] LABS: DIFFERENTIAL COMMENT 1
[2024-06-20 07:25] LABS: CALCIUM 7.6 mg/dL (8.5-10.1); CREATININE 0.9 mg/dL (0.6-1.3); MAGNESIUM 1.8 mg/dL (1.8-2.4); PHOSPHOROUS 3.3 mg/dL (2.5-4.9); POTASSIUM 3.8 mmol/L (3.5-5.1)
[2024-06-20 07:27] VITALS: BP 117/68; TEMP 97; O2SAT 99
[2024-06-20] MEDS: VANCOMYCIN IV 1,250 MG in IV DEXTROSE 5% 250 ML IV SCH (08:32)
[2024-06-20] MEDS: PIPERACILLIN SODIUM/TAZOBACTAM 3.375 G in IV DEXTROSE 5% 50 ML IV SCH (11:32)
[2024-06-20 12:00] VITALS: BP 149/72; TEMP 97.2; O2SAT 96
[2024-06-20 16:00] VITALS: BP 119/80; TEMP 98; O2SAT 99
[2024-06-20 19:40] VITALS: BP 137/100; TEMP 98.5; O2SAT 100
[2024-06-21 00:03] VITALS: BP 124/81; TEMP 98.4; O2SAT 100
[2024-06-21 05:17] VITALS: BP 154/57; TEMP 97.6; O2SAT 100
[2024-06-21 07:36] VITALS: BP 135/88; TEMP 97.2; O2SAT 100
[2024-06-21] MEDS: ACIDOPHILUS/BULGARICUS CHEW TAB PO SCH (14:50)
[2024-06-21] MEDS: FOLIC ACID 1 MG TABLET PO SCH (14:50)
[2024-06-21] MEDS: THIAMINE HCL 100 MG TABLET PO SCH (14:50)
[2024-06-21] MEDS: CEphaleXIN 500 MG CAPSULE PO SCH (14:52)
[2024-06-21 16:00] VITALS: BP 139/96; TEMP 97.6; O2SAT 100
[2024-06-21 20:00] VITALS: BP 139/94; TEMP 98.2; O2SAT 99
[2024-06-22 06:35] VITALS: BP 144/89; TEMP 97.5; O2SAT 99
[2024-06-22 06:38] LABS: BASOPHILS # (AUTO) 0.1 K/UL (0.0-0.2); BASOPHILS % (AUTO) 0.6 % (0.0-2.0); EOSINOPHILS # (AUTO) 0.5 K/uL (0.0-0.7); EOSINOPHILS % (AUTO) 4.3 % (0.0-7.0); HEMATOCRIT 38.7 % (36.7-47.1); HEMOGLOBIN 13.2 g/dL (12.5-16.3); LYMPHOCYTES # (AUTO) 1.9 K/uL (0.8-4.8); LYMPHOCYTES % (AUTO) 17.9 % (20.5-51.5); MEAN CORPUSCULAR HEMOGLOBIN 28.9 uug (23.8-33.4); MEAN CORPUSCULAR HGB CONC 34 g/dL (32.5-36.3); MEAN CORPUSCULAR VOLUME 84.5 fL (73.0-96.2); MONOCYTES # (AUTO) 1.2 K/uL (0.1-1.30); MONOCYTES % (AUTO) 10.9 % (0.0-11.0); NEUTROPHILS # (AUTO) 7.2 K/uL (1.8-8.9); NEUTROPHILS % (AUTO) 66.3 % (38.5-71.5); PLATELET COUNT (AUTO) 284 K/uL (152-348); RED BLOOD CELL COUNT(AUTO) 4.58 MIL/uL (4.06-5.63); RED CELL DISTRIBUTION WIDTH 14.9 % (12.1-16.2); WHITE BLOOD COUNT (AUTO) 10.8 K/uL (3.6-10.2)
[2024-06-22 06:42] LABS: DIFFERENTIAL COMMENT 1
[2024-06-22 06:49] LABS: CALCIUM 9.1 mg/dL (8.5-10.1); CREATININE 1.1 mg/dL (0.6-1.3); PHOSPHOROUS 4.1 mg/dL (2.5-4.9); POTASSIUM 4.8 mmol/L (3.5-5.1)
[2024-06-22] MEDS ORDERED: CEPH500C2 PO (11:25)
[2024-06-22] MEDS ORDERED: THIA100T13 PO (11:25)
[2024-06-22 11:32] VITALS: BP 142/82; TEMP 98.3; O2SAT 100
[2024-06-22 15:36] VITALS: BP 140/91; TEMP 98.4; O2SAT 100
== END 2024-06-22 16:00 | disposition home or self-care (01) | DRG 720 ==
LOC: ER 20:19 → TELE3 06-17 20:00 → MEDSURG3 06-21 11:05
PROVIDERS: ADMIT Nurse Practitioner Family; ATTEND Internal Medicine
PROC: 05HC33Z Insertion of Infusion Device into Left Basilic Vein, Percutaneous Approach (ICD-10-PCS; principal; 2024-06-18)
DX: A41.51 Sepsis due to Escherichia coli [E. coli] (principal); N17.0 Acute kidney failure with tubular necrosis; G92.8 Other toxic encephalopathy; M62.82 Rhabdomyolysis; N39.0 Urinary tract infection, site not specified; R31.0 Gross hematuria; Y84.6 Urinary catheterization as the cause of abnormal reaction of the patient, or of later complication, without mention of misadventure at the time of the procedure; Y73.8 Miscellaneous gastroenterology and urology devices associated with adverse incidents, not elsewhere classified; Y92.538 Other ambulatory health services establishments as the place of occurrence of the external cause; R65.20 Severe sepsis without septic shock; R23.3 Spontaneous ecchymoses; F31.9 Bipolar disorder, unspecified; F19.10 Other psychoactive substance abuse, uncomplicated; T48.4X1A Poisoning by expectorants, accidental (unintentional), initial encounter; Y92.039 Unspecified place in apartment as the place of occurrence of the external cause; F15.10 Other stimulant abuse, uncomplicated; F10.129 Alcohol abuse with intoxication, unspecified; D64.9 Anemia, unspecified
CPT/HCPCS: 36415; 51702; 70030-TC; 70450; 71045; 83605; 83690; 83735; 84100; 84443; 84484; 85025; 85610; 87040; 87077; 93005; A4606; A9150; G0378; G0480; J2405; J2543; J3370; J3490; J7040; J7042; J7050